=== PATIENT | female | born 1970 | race Caucasian/White ===

== ENCOUNTER 2017-03-17 18:35 | Emergency (ER) | payer OTHER ==
[~2017-03-17] VITALS: Ht 177.8 cm; Wt 77.3 kg
[~2017-03-17 18:35] MED LIST: ATOR20TA PO; BUSP30TA2 PO; IBUP200C PO; KLO5T PO; LEVO112T4 PO; LIOT5TAB3 PO; PANT40TA2 PO; RIZA10TA26 PO; SOLI5TAB2 PO; TOPI50TA32 PO; TRAZ-115 PO; VENL75CA PO
[2017-03-17 18:40] VITALS: BP 131/78; PULSE 57; RESP 20; O2SAT 100
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
[2017-03-17] MEDS ORDERED: HYDROcodone-APAP 5-325 mg Tablet PO ONE (19:30)
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
[2017-03-17 21:52] VITALS: BP 102/69; PULSE 54; RESP 16; O2SAT 97
== END 2017-03-17 21:53 | disposition home or self-care (01) ==
LOC: SED 18:35
DX: S13.4XXA Sprain of ligaments of cervical spine, initial encounter (principal); V43.52XA Car driver injured in collision with other type car in traffic accident, initial encounter; Y93.89 Activity, other specified; Y99.8 Other external cause status; Y92.410 Unspecified street and highway as the place of occurrence of the external cause; R51 Headache; I25.2 Old myocardial infarction; F17.200 Nicotine dependence, unspecified, uncomplicated; E78.5 Hyperlipidemia, unspecified; Z88.5 Allergy status to narcotic agent; Z88.8 Allergy status to other drugs, medicaments and biological substances

== ENCOUNTER 2017-04-24 08:37 | Observation (INO) | payer OTHER ==
[~2017-04-24] VITALS: Ht 177.8 cm; Wt 77.9 kg
[2017-04-24] VITALS (14 sets, daily range): BP systolic 89–128; BP diastolic 56–81; PULSE 48–61; RESP 12–20; O2SAT 94–100
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
[2017-04-24 09:00] LABS: BASOPHILS % (AUTO) 0.2 % (0-3); EOSINOPHILS % (AUTO) 0 % (0-5); MONOCYTES % (AUTO) 4.8 % (4-12); Mean Corpuscular Hemoglobin 29.1 pg (27.0-35.0); Mean Corpuscular Volume 85.4 fL (81-100); NEUTROPHILS % (AUTO) 52.3 % (40-74); Platelet Count 265 bil/L (150-400)
[2017-04-24] MEDS ORDERED: 0.9% Sodium Chloride 500 ML IV ONE (09:15)
[2017-04-24] MEDS ORDERED: ProchlorPERazine 5 mg/mL 2 mL Inj IVPUSH ONE (09:15)
[2017-04-24 09:16] LABS: INR 0.88 ratio
[2017-04-24 09:21] LABS: TROPONIN T 0.01 ug/L (0.0-0.011)
--- NOTE | 2017-04-24 09:34 | DRSVH ---
PROCEDURE: CT BRAIN WITHOUT CONTRAST ([id number]) INDICATIONS: Stroke TECHNIQUE: Noncontrast 4.5 mm thick angled axial sections acquired from the foramen magnum to the vertex, with c oronal reformats. COMPARISON: [facility], CT, CT BRAIN WO CON, 03/17/2017, 19:37. FINDINGS: Image quality: Excellent. CSF spaces: Basal cisterns are patent. No extra-axial fluid collections. Ventricles are normal in size and shape. Brain: No midline shift. No intracranial masses or hemorrhage. Treadwell-white matter interface is norm al. Skull and face: Calvarium and visualized facial bones are intact, without suspicious lesions. Sinuses: Partial opacification of left maxillary sinus. Mild right maxillary mucous retention cyst or polyp IMPRESSION: Bilateral left greater than right maxillary sinus disease. No acute intracranial abnormality Dictated by: Bakari Brothers M.D. on 04/24/2017 at 9:29 Approved by: Bakari Brothers M.D. on 04/24/2017 at 9:32
--- NOTE | 2017-04-24 10:13 | NUR ---
Evaluation completed. Please go to "Notes" then click on "Assessments and Notes" (bottom left corner of screen). Then select appropriate discipline tab on top of screen.
[2017-04-24] MEDS ORDERED: 0.9% Sodium Chloride 1,000 ML IV SCH (13:14)
[2017-04-24] MEDS ORDERED: Ondansetron 2 mg/mL 2 mL Inj IVPUSH PRN ×2 (13:15→13:30)
[2017-04-24] MEDS ORDERED: Alum-Mag Hydrox-Simeth 30 mL Suspension PO PRN ×2 (13:15→13:30)
[2017-04-24] MEDS ORDERED: hydrALAZINE 20 mg/mL Inj IVPUSH PRN (13:30)
[2017-04-24] MEDS ORDERED: Polyethylene Glycol (PEG) 17 Gm Powder PO PRN (13:30)
[2017-04-24] MEDS ORDERED: Labetalol 5 mg/mL 20 mL Inj IVPUSH PRN (13:30)
--- NOTE | 2017-04-24 14:00 | NUR ---
To [facility] 2007 from [place] [facility], A&Ox3, reports "I feel back to normal except for numbness of my lips & left side of mouth".
--- NOTE | 2017-04-24 15:58 | PCM.HPMED ---
Subjective Date of Service Apr 24, 2017 Primary Provider: Admitting Physician: Josué Garcia MD Primary Care Physician: Mariia Smith MD Attending Physician: Josué Garcia MD Admit Status: From the Emergency Department, Admit to [facility] Team Chief Complaint: CVA-like symptoms History of Present Illness: Ms. Joseph is a 46-year-old female with past medical history of NE, chronic severe migraines, depression, hypothyroidism status post thyroidectomy and fibrocystic breast disease who presented to the ED secondary to left sided facial numbness 1 day. Patient states over the last 9 days she and other family members ( and daughter age 19) have been sick at home with unknown illness her symptoms have included rhinorrhea, nonproductive cough and intermittent diarrhea. Also living at home are son-in-law, grandchild and son none of whom are currently sick. Over the last 9 days she has had a intermittent runny nose with a nonproductive cough 2 episodes of diarrhea. Her symptoms have gotten progressively worse, yesterday she felt very tired going to bed early. When she woke this morning at 0 4:30 she had a left-sided facial numbness from approximately her nose down and midline to the left extending to her ear. This numbness also extended down to the left side of her neck and she reports associated left arm heaviness. Other symptoms this morning include a headache rated a 4/10 constant pain and is located in the occipital region of her skull, this headache presentation is new and much different than her normal monthly migraine headache symptoms. She denies visual changes, difficulty breathing, chest pain or shortness of breath, difficulties talking or swallowing , difficulties walking or keeping her balance or any dizziness. In the ED CT brain noncontrast showed no acute intracranial abnormality. Her vital signs showed her to cardia and the rate of the mid 50s with some hypotension upper 90s over 50's. She was given IV fluids and admitted for continued workup. Review of Systems: A comprehensive review of systems was conducted with the patient and found to be negative except as above in the history of present illness. Allergies Coded Allergies: meperidine (Unverified Allergy, Unknown, UNKNOWN, 04/24/17) morphine (Unverified Adverse Reaction, Severe, N&V, 04/24/17) Uncoded Allergies: ONIONS (Allergy, Unknown, 06/10/14) Home Medications Atorvastatin (Lipitor) 20 Mg Tablet 20 MG PO DAILY Buspirone (Buspirone) 30 Mg Tablet 30 MG PO BID Levothyroxine (Levothyroxine) 112 Mcg Tablet 112 MCG PO DAILY Liothyronine Sodium (Liothyronine Sodium) 5 Mcg Tablet 5 MCG PO DAILY Pantoprazole DR (Protonix) 40 Mg Tablet.dr 40 MG PO DAILY Solifenacin Succinate (Vesicare) 5 Mg Tablet 5 MG PO DAILY Topiramate (Topamax) 50 Mg Tablet 50 MG PO BID Trazodone (Trazodone) 50 Mg Tablet 50 MG PO HS Venlafaxine ER (Effexor XR) 75 Mg Cap.er.24h 225 MG PO DAILY Scheduled PRN Clonazepam (Clonazepam) 0.5 Mg Tablet 0.5 MG PO BID PRN PRN For Anxiety Ibuprofen (Ibuprofen) 200 Mg Capsule 200 MG PO QID PRN PRN For Pain Rizatriptan (Maxalt) 10 Mg Tablet 10 MG PO PRN PRN PRN For Headache PMH Per outpatient records: Severe migraine Hypothyroidism Hypertension Hyperlipidemia NE Graves' disease GERD Fibromyalgia Depression CAD Anxiety attacks Surgical History Thyroidectomy Multiple foot repairs R hip repair breast bx x5 Heart cath 2009 Reports: Appendectomy, , Hysterectomy Family History Per outpatient records: Mother: Lung cancer Father: colon cancer Grandfather: Multiple sclerosis Social History Hx Alcohol Use: Yes (SOCAILLY) Hx Substance Use: No Hx Tobacco Use: No Smoking Status: Former Smoker Living Arrangement: with Family Exam Vital Signs Vital Sign - Last Date Time Temp Pulse Resp B/P Pulse Ox O2 Delivery O2 Flow Rate FiO2 04/24/17 13:51 55 04/24/17 13:46 36.7 16 107/68 98 Room Air 04/24/17 12:07 2 Exam General: Awake and alert lying in hospital bed in no acute distress, well- developed, well-nourished, appropriately interactive HEENT: Normocephalic, atraumatic. External ears without defect. Pupils equal, round, and reactive to light and accommodation. Extraocular eye movements intact Anicteric sclerae, moist conjunctivae, and no lid lag. Oropharynx free of erythema and cobble stoning with moist mucosa. Neck: Supple with full range of motion. No jugular venous distension. No bruits. Cardiovascular: Regular rate and rhythm with no murmurs, rubs, or gallops appreciated Pulmonary: Clear to auscultation bilaterally with no crackles, wheezes, or rhonchi. Normal respiratory effort with no use of accessory muscles. Abdomen: Soft, nontender, nondistended. Extremities: No clubbing, cyanosis, edema Skin: Normal temperature, turgor, and texture Neurological: Cranial nerves II through XII grossly intact. Normal muscle strength, tone, and bulk. All Facial muscle movement intact, denies sensation to light palpation of left perioral area extending to left zygomatic area Psychiatric: Normal mood and affect. Alert and oriented to person, place, and time. Lab and Diagnostics Result Diagram: 04/24/17 0850 04/24/17 0850 X-Rays, CTs and MRIs . CT BRAIN WITHOUT CONTRAST IMPRESSION: Bilateral left greater than right maxillary sinus disease. No acute intracranial abnormality Dictated by: Bakari Brothers M.D. on 04/24/2017 12-lead ECG EKG read by me showed sinus bradycardia, no obvious ST changes or T-wave abnormalities Assessment & Plan Ms. Joseph is a 46-year-old female with past medical history of NE, chronic severe migraines, depression, hypothyroidism status post thyroidectomy and fibrocystic breast disease, admitted secondary to left lower facial numbness 1 day. 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 Present on admission. Ongoing Differential includes CVA, atypical migrane, trigeminal neuralgia, short lasting unilateral neuralgiform headache attacks, tumor, viral infection secondary to depressed immune state Most likely not secondary to bells palsy as Pt retains full facial motor function -CT brain noncontrast negative -Physical exam negative for acute deficit, positive for left lower quadrant facial numbness without paralysis -Speech evaluation unremarkable, swallow study passed -At time of dictation patient undergoing MR -Echo pending -Continue neuro checks -Continue to monitor Migraine headache. Chronic. Present on admission. Ongoing -Continue home Topamax, rizatriptan Anxiety. Chronic. Present on admission. Ongoing -Continue home clonazepam, buspirone Depression. Chronic. Present on admission. Ongoing Continue home venlafaxine, trazodone Hyperlipidemia Chronic. Present on admission. Ongoing -Continue home atorvastatin Hypothyroidism Chronic. Present on admission. Ongoing -Continue home levothyroxine, liothyronine GERD Chronic. Present on admission. Ongoing -Continue home Protonix Urinary incontinence Chronic. Present on admission. Ongoing -Continue home Vesicare Patient Status: Patient was placed under observation with expected length of stay less than two midnights due to severity of presenting symptoms, risk of adverse event, and complexity of treatment plan. Pain Evaluation: Adequate Pain Control VTE Prophylaxis: Sub-Q Heparin (Unfractionated) Resuscitation Status: CPR: Attempt Resuscitation Attending Statement The patient was seen and examined together with Dr. Delaney on 04/24/2017 and I agree with the history, exam and plan as outlined in the note above. . NEO DELANEY DO Apr 24, 2017 14:10 Josué Garcia MD Apr 25, 2017 16:59
[2017-04-24 16:19] LABS: TROPONIN T 0.01 ug/L (0.0-0.011)
--- NOTE | 2017-04-24 17:09 | DRSVH ---
PROCEDURE: MRI STROKE PROTOCOL ([id number]) Pre- and post-contrast brain MRI, non-contrast brain MR angiogram, pre- and postcontrast neck MR estuardo ogram INDICATIONS: 46 year-old woman with possible CVA. TECHNIQUE: Brain: Noncontrast axial T1 spin echo, axial T2 fast spin echo, sagittal and axial FLAIR, coronal T2 fast spin echo, axial gradient echo, axial diffusion and ADC through the brain. After the administr ation of contrast, axial 3D VIBE of the cranial vasculature and brain. Brain MRA: Non-contrast 3-D time of flight MR angiogram, with multiple judncrh-lmvjmywqa-itlprzzdgk (MIP) reformats performed. Neck MRA: Axial and sagittal TruFISP through the neck. Coronal dynamic MR angiogram during administ ration of contrast in the arterial and venous phases, with 3-dimenstional pvsarwo-flkxbzgxn-soylpcpmf n (MIP) reformats constructed from subtraction images. COMPARISON: [facility], CT, CT BRAIN WO CON, 04/24/2017, 9:26. FINDINGS: Image quality: Excellent. BRAIN: CSF spaces: Ventricles are normal in size and shape. Basal cisterns are patent. No extra-axial flu id collections. Brain: There is a kidney enhancing structure on post contrast images in the left posterior frontal l obe, likely a prominent draining vein. On gradient echo images, there is a linear susceptibility renan fact in the same area, likely secondary to presence of hemosiderin product. No cerebral edema or mass effects. Treadwell-white matter interface is normal. Diffusion weighted images show no acute ischemic i nsults. Brainstem appears normal. Normal intravascular flow voids are present. No abnormal intracr anial enhancement. Skull and face: Calvarial marrow signal is normal. Orbits appear normal. Sinuses: Bilateral maxillary sinus the coastal thickening, left than right. There is mucous retention cyst in the left maxillary sinus. Mastoids are clear. BRAIN MR ANGIOGRAM: Anterior circulation: Intracranial internal carotid arteries are normal in size and enhancement. Th e flow within the paired anterior cerebral arteries is normal and symmetric. The flow within the mid dle cerebral arteries is normal and symmetric. The anterior communicating artery is seen. No stenos es, occlusions, or aneurysms. Posterior circulation: The visualized portions of the vertebral arteries demonstrate normal caliber, and join to form a normal appearing basilar artery. The flow within the posterior cerebral arteries is normal and symmetric. No stenoses, occlusions, or aneurysms. NECK MR ANGIOGRAM: Carotids: Great vessels demonstrate a conventional anatomy as they arise from the aortic arch. The origins of the common carotid arteries appear patent. The calibers and courses of both common caroti d arteries are normal. The bifurcation regions appear normal bilaterally. The internal carotid angélica crissy demonstrate normal course and caliber. Posterior circulation: The origins of the vertebral arteries appear patent. More superior portions of both vertebral arteries demonstrate normal course and caliber, and join to form a normal appearing basilar artery. Miscellaneous: Subclavian arteries appear patent. Pre-contrast images through the neck show no soft tissue abnormalities. IMPRESSION: BRAIN MRI: 1. A prominent draining vein in the left posterior frontal lobe with associated susceptibility artifa ct. 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 Blooming artifact is likely caused by presence of hemosiderin product or calcification, which i s associated with cavernous malformation. There is no cerebral edema or mass effect. If clinical symp toms persist, neurology or neurosurgical consultation is suggested. BRAIN MR ANGIOGRAM: Normal MR angiogram. NECK MR ANGIOGRAM: Normal MR neck angiogram. The estimate of stenosis included in the report of the imaging study was calculated using the NASCET method Dictated by: Vj Patterson M.D. on 04/24/2017 at 16:27 Transcribed by: HOLLY on 04/24/2017 at 17:08 Approved by: Vj Patterson M.D. on 04/25/2017 at 9:47
[2017-04-24] MEDS: Heparin 5,000 Unit/mL Inj SUBQ SCH ×2 (17:10→23:36)
--- NOTE | 2017-04-24 18:07 | NUR ---
Neuro Stable, no neuro changes. Visiting with family. Speech clear, able to eat solid food, liquids without difficulty. Swallow Eval completed in E.R. Up to BR with standby assist; steady on feet.
[2017-04-24 18:14] LABS: APPEARANCE,URINE CLEAR (CLEAR,HAZY); COLOR,URINE YELLOW (YELLOW)
[2017-04-24 18:15] LABS: OCCULT BLOOD,URINE NEGATIVE (NEGATIVE); UROBILINOGEN,URINE NORMAL (NORMAL)
[2017-04-24] MEDS ORDERED: Influenza (Adult) Vaccine 0.5 mL Syringe IM ONE (20:00)
[2017-04-24] MEDS: BusPIRone 15 mg Dividose Tablet PO SCH (20:33)
[2017-04-25 03:11] VITALS: BP 107/67; PULSE 49; RESP 20; O2SAT 97
[2017-04-25 03:13] LABS: BASOPHILS % (AUTO) 0.4 % (0-3); EOSINOPHILS % (AUTO) 0.2 % (0-5); MONOCYTES % (AUTO) 6.4 % (4-12); Mean Corpuscular Volume 86.6 fL (81-100); Platelet Count 198 bil/L (150-400)
[2017-04-25 03:38] LABS: Magnesium 2.1 mg/dL (1.6-2.6)
[2017-04-25 05:05] VITALS: PULSE 44
--- NOTE | 2017-04-25 06:39 | NUR ---
Neuro/Tele Neuro checks Q4 WNL except that pt reports numbness on left side of mouth and throat. Pt tolerating PO intake well without difficulty. Pt bradycardic and asymptomatic with Tele showing HR's in the 30's while sleeping. Pt will receive and ECHO today as well as another MRI. VSS.
[2017-04-25 08:00] VITALS: PULSE 66
[2017-04-25] MEDS: Heparin 5,000 Unit/mL Inj SUBQ SCH (08:21)
[2017-04-25] MEDS: BusPIRone 15 mg Dividose Tablet PO SCH (08:21)
[2017-04-25 08:30] VITALS: BP 112/79; PULSE 51; RESP 16; O2SAT 98
[2017-04-25] MEDS ORDERED: Venlafaxine XR 75 mg ER24 Capsule PO SCH (08:30)
[2017-04-25] MEDS ORDERED: Tolterodine ER 2 mg ER24 Capsule PO SCH (08:30)
[2017-04-25] MEDS ORDERED: Pantoprazole 40 mg ER24 Tablet PO SCH (08:30)
--- NOTE | 2017-04-25 10:43 | PCM.DIMED ---
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 Migraine headache. Chronic Anxiety. Chronic Depression. Chronic Hyperlipidemia Chronic Hypothyroidism Chronic GERD Chronic Urinary incontinence Chronic Medication Instructions Additional med instructions Please continue to take all of your regularly prescribed medications as prescribed by your primary care physician. Test Results Test Results The CT scan done of your head did not show any evidence of an intracranial bleed. The MRI done of your head and neck did not show any new abnormalities. 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 It is recommended that if these clinical symptoms persist that you seek additional evaluation by a neurologist. This can be done in the outpatient setting and does not require a prolonged hospital stay. Diet Discharge Diet: No restrictions Activity Discharge Activity: No restrictions Call your provider Call your provider for: Fever or Chills, Shortness of breath, Bleeding, Chest pain, Vomitting, Excessive diarrhea, Weakness (unilateral) Patient Instructions Patient Instructions The imaging obtained did not show any clear indication that your lower left facial numbness was caused by a stroke or mass in your brain. Based on laboratory values, ECG and imaging studies we do not believe that your symptoms were due to a heart attack.. 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 Please follow up with your primary care provider regarding this hospitalization within the next week or two. If your symptoms persist you may need to be seen by a neurologist for further evaluation. Your primary care doctor will be able to refer you to this specialist if nessisary. Your heart rate was persistently low during her hospital stay, at one point dropping down to [address] Neli like to see you in her office in the next week or two for further evaluation. Follow-up plan Please follow up with your primary care provider in the next week or two regarding this hospital visit. You may need to be referred to a neurologist of your symptoms persist. I have also talked to Dr. Neil your cane cutter regarding your persistent bradycardia during his hospital stay and she would like to see you in her clinic in the next week or two for further evaluation. Follow-up Provider: Mariia Smith MD Follow-up with PCP in: 1 week Provider: Brenda Neil MD Follow-up in: 1 week Josué Garcia MD 04/25/17 1700: Discharge Instructions Attending's Statement The patient was seen and examined together with Dr. Delaney on 04/25/2017 and I agree with the history, exam and plan as outlined in the note above. . NEO DELANEY DO Apr 25, 2017 10:43 Josué Garcia MD Apr 25, 2017 17:00
[2017-04-25 12:34] VITALS: BP 106/97; PULSE 60; RESP 16; O2SAT 98
--- NOTE | 2017-04-25 13:10 | NUR ---
Evaluation completed. Please go to "Notes" then click on "Assessments and Notes" (bottom left corner of screen). Then select appropriate discipline tab on top of screen.
--- NOTE | 2017-04-25 15:21 | DRSVH ---
[facility] [address] [place] [address] Echocardiogram Report Name: ONEYDA ADAN Date: 04/25/2017 Height: 70 in Hospital Exam Location: [facility] Weight: 172 lb Gender: Female BSA: 2.0 m2 : 1970 Age: 46 yrs BP: 107/67 mm Hg Reason For Study: CVA HR: 40 History: CVA Ordering Physician: HOSPITALIST [facility] Performed By: Ronda Venegas Referring Physician: [place] [facility] Interpretation Summary Sinus bradycardia; HR is 41-44 bpm during the study. Normal LV size, wall thickness, wall motion and LV systolic function. EF is 60-65%. Normal chamber sizes. No significant valvular abnormalities. No evidence of significant right to left shunting during agitated saline study. Compared to prior study 09/04/2010 bradycardia is new. Procedure: A two-dimensional transthoracic echocardiogram with color flow and Doppler was performed. The study quality was technically adequate. A saline contrast injection was performed to assess for cardiac shunting. Comparison is made with the echocardiogram of 09/04/2010. Sinus bradycardia; HR is 41-44 bpm during the study. Left Ventricle: The left ventricle is borderline dilated. Left ventricular wall thickness is at the upper limits of normal. The ejection fraction is estimated to be 60-65%. Right Ventricle: The right ventricle is normal in size and function. Atria: Both atria are normal in size. Mitral Valve: The mitral valve is normal in structure and function. There is trace mitral regurgitation. Aortic Valve: The aortic valve is trileaflet. The aortic valve opens well. No aortic regurgitation is present. Tricuspid Valve: The tricuspid valve is normal in structure and function. There is trace tricuspid regurgitation. Pulmonary artery pressures cannot be estimated because of the lack of a measurable TR jet velocity. Pulmonic Valve: The pulmonic valve is normal in structure and function. There is a trace or physiologic amount of pulmonic regurgitation. Great Vessels: The aortic root is normal size. The ascending aorta is normal in size. The IVC is of normal diameter and collapses greater than 50% with a sniff. This suggests a low right atrial pressure of 3 mm Hg. Pericardium/ Pleura There is a trivial pericardial effusion noted. There is no pleural effusion. MMode/2D Measurements & Calculations LVIDd: 5.3 cm LVIDs: 3.0 cm LA A2 area: 16.6 cm FS: 43.7 % LA A4 area: 16.7 cm IVSd: 1.1 cm LA length (vol): 5.1 cm LVPWd: 0.89 cm LA vol: 46.3 ml LA vol index: 23.6 ml/m IVC diam: 2.0 cm RA long axis: 4.6 cm LVOT diam: 2.2 cm RA area: 14.9 cm Ao root diam: 2.9 cm RA vol: 41.0 ml asc Aorta Diam: 3.3 cm RA : 20.9 ml/m2 LV frias. diameter/BSA (cm/m^2): 2.7 LV sys. diameter/BSA (cm/m^2): 1.5 TAPSE: 2.2 cm Doppler Measurements & Calculations Ao V2 max: 96.4 cm/sec MV E max kem: 55.3 cm/sec Ao max P.7 mmHg MV A max kem: 62.1 cm/sec Ao mean P.1 mmHg LVOT Max Kem: 86.2 cm/sec SAM(I,D): 3.2 cm sev ratio: 0.86 MV E/A: 0.89 PA V2 max: 58.7 cm/sec PA mean P.96 mmHg MV dec time: 0.15 sec Ao V2 mean: 70.5 cm/sec Ao V2 VTI: 24.7 cm SAM(V,D): 3.4 cm2 LV V1 max P.0 mmHg PA V2 mean: 46.7 cm/sec LV V1 VTI: 21.3 cm PA pr(Accel): 37.5 mmHg SAM indexed to BSA (cm^2/m^2): 1.7 Reading Physician:03:20 PM
--- NOTE | 2017-04-25 16:22 | NUR ---
Social Work Note: Brief Note/Discharge Data& Assessment: EMR reviewed. Per pt is medically ready to discharge home via POV. CASE SUPERVISOR met with pt and pt at bedside to confirm discharge plan and assess for any unmet needs. Peace Joseph is a 46 year old female admitted on 04/24/2017 for CVA. Per MD pt is medically improved and ready for discharge. Pt feels she is ambulating at her baseline and PT cleared pt to return home without any additional PT needs. ST also met with pt and cleared pt to return home without any additional ST needs. Pt underwent an Echo which was reviewed and pt was medically cleared to discharge home. Pt has [facility] and sees Mariia Smith MD for primary care. Pt lives in [place] with her family and is independent at baseline with all ADL's. Pt does not use any DME at baseline. Pt to transport her home this evening. Pt and pt deny any other needs. No MD orders identified. All updated and agreeable to plan. Plan: Per pt is medically ready to discharge home via POV. Pt and pt deny any other needs. No MD orders identified. All updated and agreeable to plan. DEANNA Chandler
--- NOTE | 2017-04-25 16:48 | NUR ---
Discharge Pt discharged at 1650. She was given discharge instructions and instructions for follow up care and confirmed understanding. She did not leave with any prescriptions. PIV was d/c'd intact. Her was present at the bedside for discharge education. She was walked to the car by unit staff where her picked her up in their vehicle.
--- NOTE | 2017-04-25 18:24 | PCM.DC.MED ---
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 Migraine headache. Chronic Anxiety. Chronic Depression. Chronic Hyperlipidemia Chronic Hypothyroidism Chronic GERD Chronic Urinary incontinence Chronic Procedures XRay, CTs & MRIs . CT BRAIN WITHOUT CONTRAST IMPRESSION: Bilateral left greater than right maxillary sinus disease. No acute intracranial abnormality Dictated by: Bakari Brothers M.D. on 04/24/2017 MRI STROKE PROTOCOL IMPRESSION: BRAIN MRI: 1. A prominent draining vein in the left posterior frontal lobe with associated susceptibility artifact. The MRI findings are most compatible with developmental venous anomaly or mixed vascular malformation. Blooming artifact is likely caused by presence of hemosiderin product or calcification, which is associated with cavernous malformation. There is no cerebral edema or mass effect. If clinical symptoms persist, neurology or neurosurgical consultation is suggested. BRAIN MR ANGIOGRAM: Normal MR angiogram. NECK MR ANGIOGRAM: Normal MR neck angiogram. The estimate of stenosis included in the report of the imaging study was calculated using the NASCET method Dictated by: Vj Patterson M.D. on 04/24/2017 ECG 12 Lead EKG read by me showed sinus bradycardia, no obvious ST changes or T-wave abnormalities Cardiac Echo Impression . Echocardiogram Report Interpretation Summary: Sinus bradycardia; HR is 41-44 bpm during the study. Normal LV size, wall thickness, wall motion and LV systolic function. EF is 60-65%. Normal chamber sizes. No significant valvular abnormalities. No evidence of significant right to left shunting during agitated salinestudy. Compared to prior study 09/04/2010 bradycardia is new. Brief History Ms. Joseph is a 46-year-old female with past medical history of [place], chronic severe migraines, depression, hypothyroidism status post thyroidectomy and fibrocystic breast disease who presented to the ED secondary to left sided facial numbness 1 day. Patient states over the last 9 days she and other family members ( and daughter age 19) have been sick at home with unknown illness her symptoms have included rhinorrhea, nonproductive cough and intermittent diarrhea. Also living at home are son-in-law, grandchild and son none of whom are currently sick. Over the last 9 days she has had a intermittent runny nose with a nonproductive cough 2 episodes of diarrhea. Her symptoms have gotten progressively worse, yesterday she felt very tired going to bed early. When she woke this morning at 0 4:30 she had a left-sided facial numbness from approximately her nose down and midline to the left extending to her ear. This numbness also extended down to the left side of her neck and she reports associated left arm heaviness. Other symptoms this morning include a headache rated a 4/10 constant pain and is located in the occipital region of her skull, this headache presentation is new and much different than her normal monthly migraine headache symptoms. She denies visual changes, difficulty breathing, chest pain or shortness of breath, difficulties talking or swallowing , difficulties walking or keeping her balance or any dizziness. In the ED CT brain noncontrast showed no acute intracranial abnormality. Her vital signs showed her to cardia and the rate of the mid 50s with some hypotension upper 90s over 50's. She was given IV fluids and admitted for continued workup. Hospital Course Ms. Joseph is a 46-year-old female with past medical history of [place], chronic severe migraines, depression, hypothyroidism status post thyroidectomy and fibrocystic breast disease, admitted secondary to left lower facial numbness which is most likely due to reactivation of latent viral infection brought on by recent flulike illness 1 week. 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 Present on admission. Presumed stable Differential includes CVA, atypical migrane, trigeminal neuralgia, short lasting unilateral neuralgiform headache attacks, tumor, viral infection secondary to depressed immune state Most likely not secondary to bells palsy as Pt retains full facial motor function -CT brain noncontrast negative, MRI shows no definitive cause for paralysis -Physical exam negative for acute deficit, positive for left lower quadrant facial numbness without paralysis -Speech evaluation unremarkable, swallow study passed -Echo shows bradycardia otherwise normal -At time of discharge facial numbness maintain persistent, no new symptom progression. -Patient given instructions on follow-up with primary care, possibly continual evaluation with neurologist if symptoms persist Bradycardia. Present on admission. Presumed stable Patient states she's been told she has bradycardia before though no prior records of this. 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 Chronic. Present on admission. Ongoing -Continued home Topamax, rizatriptan Anxiety. Chronic. Present on admission. Ongoing -Continued home clonazepam, buspirone Depression. Chronic. Present on admission. Ongoing Continued home venlafaxine, trazodone Hyperlipidemia Chronic. Present on admission. Ongoing -Continued home atorvastatin Hypothyroidism Chronic. Present on admission. Ongoing -Continued home levothyroxine, liothyronine GERD Chronic. Present on admission. Ongoing -Continued home Protonix Urinary incontinence Chronic. Present on admission. Ongoing -Continued home Vesicare Exam Vital Signs (Last) Date Time Temp Pulse Resp B/P Pulse Ox O2 Delivery O2 Flow Rate FiO2 04/25/17 12:34 36.7 60 16 106/97 98 Room Air 04/24/17 12:07 2 Exam General: Awake and alert sitting up in bed in no acute distress, well-developed , well-nourished slightly flat affect. HEENT: Normocephalic, atraumatic. External ears without defect. Pupils equal, round, and reactive to light and accommodation. Oropharynx free of erythema and cobble stoning with moist mucosa. Neck: Supple with full range of motion. No jugular venous distension. No bruits. No lymphadenopathy or thyromegaly. Cardiovascular: Bradycardic rate with regular rhythm with no murmurs appreciated Pulmonary: Clear to auscultation bilaterally with no crackles, wheezes, or rhonchi. Normal respiratory effort with no use of accessory muscles. Abdomen: Soft, nontender, nondistended. Extremities: No clubbing, cyanosis, edema Skin: Normal temperature, turgor, and texture; no rash, ulcers, or subcutaneous nodules appreciated. Neurological: Cranial nerves remain grossly intact. Left lower face facial paresthesia remains Psychiatric: Normal mood and affect. Alert and oriented to person, place, and time. Test 04/24/17 08:50 04/24/17 15:32 04/24/17 17:51 04/25/17 02:45 Prothrombin Time 9.4sec (8.1-12.5) Prothromb Time International Ratio 0.88ratio Activated Partial Thromboplast Time 26.4sec (22.8-33.0) Hemoglobin A1c 5.2% (4.8-5.6) Triglycerides Level 172mg/dL (0-149) Cholesterol Level 218mg/dL (100-199) LDL Cholesterol, Calculated 134.600mg/dL (0-99) VLDL Cholesterol 34.400mg/dL HDL Cholesterol 49mg/dL (>39) Cholesterol/HDL Ratio 4.45 (0.0-4.4) Troponin T 0.010ug/L (0.0-0.011) Thyroid Stimulating Hormone (TSH) 0.327uIU/mL (0.450-4.500) Urine Color Yellow (YELLOW) Urine Appearance Clear (CLEAR,HAZY) Urine pH 7.0 (5.0-8.0) Urine Specific Proctor 1.015 (1.003-1.035) Urine Protein Negativemg/dL (NEG,TRACE) Urine Glucose (UA) Negativemg/dL (NEGATIVE) Urine Ketones Negativemg/dL (NEGATIVE) Urine Occult Blood Negative (NEGATIVE) Urine Nitrite Negative (NEGATIVE) Urine Bilirubin Negative (NEGATIVE) Urine Urobilinogen Normalmg/dL (NORMAL) Urine Leukocyte Esterase Negative (NEGATIVE) Urine RBC 0-2/hpf (0-2) Urine WBC 0-5/hpf (0-5) Urine Epithelial Cells Few/hpf (NONE-MOD) Urine Crystals None seen (NONE SEEN) Urine Bacteria Few/hpf (NONE-FEW) Urine Hyaline Casts None/lpf (NONE) Urine Granular Casts None seen (NONE SEEN) Urine Waxy Casts None seen (NONE SEEN) Urine Red Blood Cell Casts None seen (NONE SEEN) Urine White Blood Cell Casts None seen (NONE SEEN) Urine Mucus None seen (None Seen) Urine Trichomonas None seen (NONE SEEN) Urine Yeast None (NONE SEEN) Urinalysis Comment None Urine Culture Reflexed Not indicated White Blood Count 5.3th/mm3 (3.8-10.1) Red Blood Count 3.65mil/mm3 (3.90-5.20) Hemoglobin 10.6g/dL (12.0-15.6) Hematocrit 31.6% (35.0-46.0) Mean Corpuscular Volume 86.6fL (81-100) Mean Corpuscular Hemoglobin 29.0pg (27.0-35.0) Mean Corpuscular Hemoglobin Concent 33.5% (32.0-37.0) Red Cell Distribution Width 12.6% (12.3-15.4) Platelet Count 198bil/L (150-400) Neutrophils (%) (Auto) 40.0% (40-74) Lymphocytes (%) (Auto) 52.8% (14-46) Monocytes (%) (Auto) 6.4% (4-12) Eosinophils (%) (Auto) 0.2% (0-5) Basophils (%) (Auto) 0.4% (0-3) Sodium Level 143mEq/L (134-144) Potassium Level 3.8mEq/L (3.5-5.2) Chloride Level 108mEq/L (97-108) Carbon Dioxide Level 24mmol/L (18-29) Blood Urea Nitrogen 17mg/dL (6-24) Creatinine 0.76mg/dL (0.57-1.00) Estimat Glomerular Filtration Rate 117mL/min (>59) Glucose Level 99mg/dL (60-99) Calcium Level 8.8mg/dL (8.5-10.1) Magnesium Level 2.1mg/dL (1.6-2.6) Total Bilirubin 0.2mg/dL (0.0-1.2) Aspartate Amino Transf (AST/SGOT) 12U/L (0-50) Alanine Aminotransferase (ALT/SGPT) 17U/L (0-32) Alkaline Phosphatase 85U/L (25-150) Total Protein 5.7g/dL (6.4-8.4) Albumin 3.6g/dL (3.4-5.0) Discharge Medications Discharge Medications Atorvastatin (Lipitor) 20 Mg Tablet 20 MG PO DAILY (Reported) Buspirone (Buspirone) 30 Mg Tablet 30 MG PO BID (Reported) Levothyroxine (Levothyroxine) 112 Mcg Tablet 112 MCG PO DAILY (Reported) Liothyronine Sodium (Liothyronine Sodium) 5 Mcg Tablet 5 MCG PO DAILY (Reported ) Pantoprazole DR (Protonix) 40 Mg Tablet.dr 40 MG PO DAILY (Reported) Solifenacin Succinate (Vesicare) 5 Mg Tablet 5 MG PO DAILY (Reported) Topiramate (Topamax) 50 Mg Tablet 50 MG PO BID (Reported) Trazodone (Trazodone) 50 Mg Tablet 25-50 MG PO HS (Reported) Venlafaxine ER (Effexor XR) 75 Mg Cap.er.24h 225 MG PO DAILY (Reported) As needed Clonazepam (Clonazepam) 0.5 Mg Tablet 0.5 MG PO BID PRN PRN For Anxiety ( Reported) Ibuprofen (Ibuprofen) 200 Mg Capsule 200 MG PO QID PRN PRN For Pain (Reported) Rizatriptan (Maxalt) 10 Mg Tablet 10 MG PO PRN PRN PRN For Headache (Reported) Additional med instructions Please continue to take all of your regularly prescribed medications as prescribed by your primary care physician. Followup Plan Disposition: Discharged home in stable condition Follow-up plan Please follow up with your primary care provider in the next week or two regarding this hospital visit. You may need to be referred to a neurologist of your symptoms persist. I have also talked to Dr. Neil your beer cooler regarding your persistent bradycardia during his hospital stay and she would like to see you in her clinic in the next week or two for further evaluation. Discharge Diet: No restrictions Discharge Activity: No restrictions Patient Instructions The imaging obtained did not show any clear indication that your lower left facial numbness was caused by a stroke or mass in your brain. Based on laboratory values, ECG and imaging studies we do not believe that your symptoms were due to a heart attack.. 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 Please follow up with your primary care provider regarding this hospitalization within the next week or two. If your symptoms persist you may need to be seen by a neurologist for further evaluation. Your primary care doctor will be able to refer you to this specialist if nessisary. Your heart rate was persistently low during her hospital stay, at one point dropping down to [address] Neil like to see you in her office in the next week or two for further evaluation. Follow-up Provider: Mariia Smith MD Follow-up with PCP in: 1 week Provider: Brenda Neil MD Follow-up in: 1 week Time spent Greater than 30 minutes was spent in preparation of discharge with greater than 50% of that time dedicated to patient counseling and coordination of care. . Attending Statement The patient was seen and examined together with Dr. Delaney on 04/25/2017 and I agree with the history, exam and plan as outlined in the note above. . copies to: Brenda Neil MD; Mariia Smith MD, GILES A DO Apr 25, 2017 18:24 Josué Garcia MD Apr 26, 2017 07:47
== END 2017-04-25 16:45 | disposition home or self-care (01) ==
LOC: SED 08:37 → PCC 12:10
PROVIDERS: ADMIT Internal Medicine; ATTEND Internal Medicine
DX: R20.0 Anesthesia of skin (principal); R00.1 Bradycardia, unspecified; G43.909 Migraine, unspecified, not intractable, without status migrainosus; F41.9 Anxiety disorder, unspecified; F32.9 Major depressive disorder, single episode, unspecified; E78.5 Hyperlipidemia, unspecified; E03.9 Hypothyroidism, unspecified; K21.9 Gastro-esophageal reflux disease without esophagitis; R32 Unspecified urinary incontinence; I25.2 Old myocardial infarction; I10 Essential (primary) hypertension; E05.00 Thyrotoxicosis with diffuse goiter without thyrotoxic crisis or storm; M79.7 Fibromyalgia; I25.10 Atherosclerotic heart disease of native coronary artery without angina pectoris; Z95.5 Presence of coronary angioplasty implant and graft; Z87.891 Personal history of nicotine dependence; Z23 Encounter for immunization
CPT/HCPCS: 36415; 70450; 70549; 70553; 80053; 80061; 81000; 82948; 83036; 83735; 84443; 84484; 85025; 85610; 85730; 90471; 90674; 92610; 93005; 96361; 96374; 96375; 97161; 99285; A9585; C8929; G0378; J0780; J1200; J1644; J7030; J7040